=== PATIENT | female | born 1990 | race Caucasian/White ===

== ENCOUNTER 2024-06-14 09:26 | Emergency (ER) | payer OTHER, SELFPAY ==
--- NOTE | ~2024-06-14 | CT_ITS ---
EXAMINATION: CT ABDOMEN AND PELVIS WITH CONTRAST CLINICAL INFORMATION: Abdominal pain, nausea, and vomiting. COMPARISON: None available. TECHNIQUE: Multidetector volumetric images were obtained from the superior aspect of the liver through the pubic symphysis following administration 85 mL of Omnipaque 350 intravenous contrast. Sagittal and coronal reformatted images were obtained on the technologist's workstation. Oral contrast: No This CT examination was performed using dose optimization techniques as appropriate, variously including the following: *Automated exposure control *Adjustment of mA and/or kV according to patient size (this includes techniques or standardized protocols for targeted exams where dose is matched to indication/reason for exam; i.e. extremities or head) *Use of iterative reconstruction technique FINDINGS: LUNG BASES: The visualized lung bases are unremarkable. LIVER, GALLBLADDER, AND BILIARY TREE: The liver is normal in size, shape, and attenuation. No suspicious focal hepatic lesion or biliary ductal dilatation is present. There is a tiny subcentimeter segment 3 cyst with adjacent dystrophic calcification. The gallbladder is unremarkable with no evidence of radiopaque gallstones, gallbladder wall thickening, or obvious pericholecystic inflammatory changes. PANCREAS: Unremarkable. SPLEEN: Unremarkable. ADRENAL GLANDS: Unremarkable. KIDNEYS AND URETERS: The kidneys are normal in size, shape, and attenuation. No hydronephrosis, hydroureter, or calculi seen. No perinephric stranding. BLADDER: Unremarkable. GASTROINTESTINAL TRACT: The stomach and duodenum are normal. The small and large bowel are unremarkable. The appendix is unremarkable. The rectum is unremarkable. ABDOMINAL WALL: No significant hernia is appreciated. LYMPH NODES: None enlarged by size criteria. Increased number of small subcentimeter mesenteric lymph nodes, presumably reactive. VASCULAR: Unremarkable. PELVIC VISCERA: There is an inferior right paramedian fundal fibroid tumor measuring 4.0 x 4.8 x 5.2 cm (AP, TRV, CC). Uterus and ovaries are otherwise normal in appearance. Trace free pelvic fluid, likely physiologic. OSSEOUS STRUCTURES: No suspicious lytic or blastic bone lesions. Normal appearance. CT/CT abdomen pelvis w IV con IMPRESSION: 1. No acute findings in the abdomen or pelvis. 2. Increased number of subcentimeter small lymph nodes throughout the small bowel mesentery, nonspecific and likely reactive. Consider mesenteric adenitis. 3. Inferior right paramedian fundal uterine fibroid measuring 4.0 x 4.8 x 5.2 cm. Electronically signed by: Neymar Rodriguez MD 06/14/2024 04:08 PM EDT RP
[2024-06-14 09:32] VITALS: BP 125/83; PULSE 117; RESP 18; TEMP 36.8; O2SAT 97; BMI 36.4
--- NOTE | 2024-06-14 09:51 | ECG_ITS ---
Test Reason : TACHY Blood Pressure : */* mmHG Vent. Rate : 114 BPM Atrial Rate : 114 BPM P-R Int : 118 ms QRS Dur : 78 ms QT Int : 330 ms P-R-T Axes : 18 -2 -1 degrees QTcB Int : 454 ms Sinus tachycardia Nonspecific ST and T wave abnormality Abnormal ECG No previous ECGs available Referred By: Generic ED Physician Electronically Signed By: IVETH PALMA
[2024-06-14 10:02] LABS: MANUAL DIFF FLAG NO
[2024-06-14 10:04] LABS: Basophils Percent Auto 0.3 % (0-2); Eosinophils Absolute Auto 0.1 X10*3/uL (0.0-0.4); Eosinophils Percent Auto 1.8 % (0-4); Hematocrit 38.4 % (37.0-47.0); Hemoglobin 12.3 g/dl (12.0-16.0); Imm Gran Abs Auto 0.02 X10*3/uL (0.00-0.03); Imm Gran Pct Auto 0.3 % (0.0-0.4); Lymphocytes Absolute Auto 1.1 X10*3/uL (1.2-4.9); Lymphocytes Percent Auto 14.5 % (20-40); Mean Corpuscular Hemoglobin 25.9 pg (27.0-33.0); Monocytes Absolute Auto 0.6 X10*3/uL (0.1-1.2); Monocytes Percent Auto 7.5 % (2-11); Neutrophils Absolute Auto 5.8 x10*3/uL (2.0-8.3); Neutrophils Percent Auto 75.6 % (45-73); Platelet Count 257 X10*3/uL (160-400); Red Blood Count 4.74 X10*6/uL (4.20-5.50); Red Cell Distribution Width 15.6 % (11.0-16.0); White Blood Count 7.6 X10*3/uL (4.8-10.8)
[2024-06-14 10:24] LABS: Alanine Aminotransferase 21 U/L (0-31); Albumin Level 3.9 g/dL (3.5-5.0); Alkaline Phosphatase 63 U/L (39-117); Anion Gap 9 (12-20); Aspartate Amino Transferase 21 U/L (5-31); Bilirubin Total 0.3 mg/dL (0.0-1.0); Blood Urea Nitrogen 9 mg/dL (9-16); Calcium 8.8 mg/dL (8.4-10.2); Carbon Dioxide 23 mmol/L (22-29); Chloride 109 mmol/L (96-108); Estimated Glomerular Filt Rate > 60; Glucose Random 108 mg/dL (60-115); Lipase 23 U/L (8-78); Potassium 3.9 mmol/L (3.3-5.1); Sodium 137 mmol/L (135-145); Total Protein 6.6 g/dL (6.5-8.0)
[2024-06-14 10:33] LABS: IDNOW Serial# 58CA691E; Influenza A Negative (Negative); Influenza B2 Negative (Negative)
[2024-06-14 11:26] LABS: Appearance Urine Clear; Color Urine Yellow; Glucose Urine UA Negative (Negative); Leukocyte Esterase Urine Small (1+) (Negative); Nitrite Urine Negative (Negative); PH 6.5 (5.0-9.0); UMIC TRIGGER UACC YES; Urine Blood Negative (Negative); Urine Ketones Negative (Negative); Urine Protein Negative (Neg-Trace)
[2024-06-14 11:34] LABS: Bacteria Urine 1+ (None Seen); Hyaline Casts Urine 0-2 /LPF (0-2); RBC Urine 0-2 /HPF (0-2); UACC Culture Trigger YES; WBC Urine 0-5 /HPF (0-5)
[2024-06-14 11:39] VITALS: BP 134/80; PULSE 84; RESP 15; TEMP 36.6; O2SAT 97
--- NOTE | 2024-06-14 11:47 | ED_ITS ---
HPI - Nausea/Vomiting/Diarrhea General Chief complaint: Nausea/Vomiting/Diarrhea Stated complaint: GI Issues Time Seen by Provider: 06/14/24 10:57 History of Present Illness HPI Narrative: Patient is 33 years old presents today with having nausea vomiting diarrhea generalized malaise abdominal pain worse on the right side. No history of abdominal surgery in the past. Patient does not think she is . Menstrual cycle has been normal. No coughing or congestion or upper respiratory symptoms. No diaphoresis. Related Data Previous Rx's ?Medication ?Instructions ?Recorded ondansetron 4 mg disintegrating 4 mg PO TID PRN nausea and 06/14/24 tablet vomiting 5 days #10 tabs Allergies Allergy/AdvReac Type Severity Reaction Status Date / Time No Known Allergies Allergy Verified 06/14/24 09:35 Review of Systems 2 Review of Systems: Positive abdominal pain positive nausea positive diarrhea Yes all other systems are reviewed and are negative [facility] Past Medical History Attestation statement: The following information was validated with the patient. Social History Social History Advance Directives: No Advance Directives Information Provided: No Physical Exam 2 Vital Signs: Vital Signs: Last Vital Signs Temp 98.3 F 06/14/24 15:39 Pulse 91 06/14/24 15:39 Resp 17 06/14/24 15:39 BP 120/72 06/14/24 15:39 Pulse Ox 99 06/14/24 15:39 O2 Del Method Room Air 06/14/24 15:39 BMI result Body Mass Index 36.4 Appearance: Alert. Oriented X3. No acute distress. Eyes: Pupils equal, round and reactive to light. ENT: Pharynx normal. Neck: Normal inspection. Neck supple. No lymph nodes noted. No crepitus CVS: Normal heart rate and rhythm. Pulses normal. Normal S1 and S2 Respiratory: No respiratory distress. Breath sounds normal. No Wheezing. No rales Abdomen: Soft and nontender. No rigidity. No distention. good BS x4 Skin: Skin warm and dry. Normal skin color. Normal skin turgor. Extremities: No lower extremity edema. Neurovascular intact to all extremities. No Lacerations. No Rash Neuro: Oriented X 3. No motor deficit. No sensory deficit. Moving all extermities. No slurred speech Medications Administered Discontinued Medications Generic Name Dose Route Start Last Admin Trade Name Freq PRN Reason Stop Dose Admin Sodium Chloride 1,000 mls @ 999 mls/hr 06/14/24 11:45 06/14/24 12:59 Ns IV 06/14/24 12:45 Infused .Q1H1M LAKSHMI Infusion Sodium Chloride 1,000 mls @ 999 mls/hr 06/14/24 11:45 06/14/24 15:05 Ns IV 06/14/24 12:45 Infused .Q1H1M LAKSHMI Infusion Iohexol 100 ml 06/14/24 15:44 06/14/24 15:44 Iohexol 350 Mg/Ml 100 Ml Infus..Btl IV 06/14/24 15:45 85 ml ONCE ONE Administration Ketorolac Tromethamine 15 mg 06/14/24 11:50 06/14/24 12:09 Ketorolac Tromethamine 15 Mg/Ml Vial IVPUSH 06/14/24 11:51 15 mg ONCE ONE Administration Ondansetron HCl 4 mg 06/14/24 11:50 06/14/24 12:09 Ondansetron Hcl 4 Mg/2 Ml Vial IVPUSH 06/14/24 11:51 4 mg ONCE ONE Administration Medical Decision Making Medical Decision Making [facility] Narrative: Patient is 33 years old presents today with having nausea vomiting diarrhea. A colleague also has a same illness. Patient had some right upper quadrant pain as well. There is no shortness of breath there is no diaphoresis. Her electrolytes are normal. test was negative no related issue. CT scan showed no evidence of appendicitis. Patient's LFTs are normal exam negative for biliary disease. Will discharge patient home close follow-up on an outpatient basis. Differential Diagnosis Differential Diagnoses: The differential diagnosis associated with the presentation includes Gastroenteritis, appendicitis, biliary disease, kidney stone Admission/Observation Consideration of admission/observation: Escalation of care including admission/observation considered Lab Data [facility] Lab Attestation statement: I reviewed the patient's lab results. 06/14/24 09:49 06/14/24 09:49 Labs: Lab Results 06/14/24 06/14/24 Range/Units 09:49 11:15 WBC 7.6 (4.8-10.8) X10*3/uL RBC 4.74 (4.20-5.50) X10*6/uL Hgb 12.3 (12.0-16.0) g/dl Hct 38.4 (37.0-47.0) % MCV 81.0 (80.0-98.0) fL MCH 25.9 L (27.0-33.0) pg MCHC 32.0 (31.0-35.0) g/dl RDW 15.6 (11.0-16.0) % Plt Count 257 (160-400) X10*3/uL MPV 10.0 (9.4-12.3) fL Immature Gran % (Auto) 0.3 (0.0-0.4) % Neut % (Auto) 75.6 H (45-73) % Lymph % (Auto) 14.5 L (20-40) % [place] % (Auto) 7.5 (2-11) % Eos % (Auto) 1.8 (0-4) % Baso % (Auto) 0.3 (0-2) % Lymph # (Auto) 1.1 L (1.2-4.9) X10*3/uL [place] # (Auto) 0.6 (0.1-1.2) X10*3/uL Eos # (Auto) 0.1 (0.0-0.4) X10*3/uL Baso # (Auto) 0.0 (0.0-0.2) X10*3/uL Abs Immat Gran (auto) 0.02 (0.00-0.03) X10*3/uL Absolute Neuts (auto) 5.8 (2.0-8.3) x10*3/uL Absolute Nucleated RBC 0.000 (0.0-0.012) X10*3/uL Nucleated RBC % (auto) 0.0 (0.0-0.2) /100WBC Sodium 137 (135-145) mmol/L Potassium 3.9 (3.3-5.1) mmol/L Chloride 109 H (96-108) mmol/L Carbon Dioxide 23 (22-29) mmol/L Anion Gap 9 L (12-20) BUN 9 (9-16) mg/dL Creatinine 0.74 (0.5-1.4) mg/dL Estim Creat Clear Calc 135.0 Estimated GFR > 60 Random Glucose 108 (60-115) mg/dL Calcium 8.8 (8.4-10.2) mg/dL Total Bilirubin 0.3 (0.0-1.0) mg/dL AST 21 (5-31) U/L ALT 21 (0-31) U/L Alkaline Phosphatase 63 (39-117) U/L Total Protein 6.6 (6.5-8.0) g/dL Albumin 3.9 (3.5-5.0) g/dL Lipase 23 (8-78) U/L Beta HCG, Quant < 2 mIU/mL Urine Color Yellow Urine Appearance Clear Urine pH 6.5 (5.0-9.0) Ur Specific [place] 1.010 (1.005-1.025) Urine Protein Negative (Neg-Trace) mg/dL Urine Glucose (UA) Negative (Negative) mg/dL Urine Ketones Negative (Negative) mg/dL Urine Blood Negative (Negative) Urine Nitrite Negative (Negative) Ur Leukocyte Esterase Small (1+) H (Negative) Urine RBC 0-2 (0-2) /HPF Urine WBC 0-5 (0-5) /HPF Ur Squamous Epith Cells 3-5 (0-2) /HPF Urine Bacteria 1+ (None Seen) Hyaline Casts 0-2 (0-2) /LPF Urine Test NEGATIVE (NEGATIVE) Influenza Type A (REYNALDO) Negative (Negative) Influenza Type B (REYNALDO) Negative (Negative) Influenza A & B Note See Note Independent Interpretation I performed an independent interpretation of an: CT Scan ( CT abdomen negative for obstruction abscess perforation) Radiology Impression Discussion of test interpretation with radiology: I have reviewed the radiologist's reading. Discharge Plan Discharge Clinical Impression: Gastroenteritis Patient Disposition: Home, Self-Care Instructions: Gastroenteritis (DC) Prescriptions: New ondansetron 4 mg tablet,disintegrating 4 mg PO TID PRN (Reason: nausea and vomiting) 5 Days Qty: 10 0RF Referrals: Physician,Unknown J [Primary Care Provider] - 06/18/24 Print Language: Maltese
[2024-06-14] MEDS: 0.9 % Sodium Chloride 1,000 ML 999 ML IV ×2 (11:58→14:04)
[2024-06-14] MEDS: ondansetron HCL 4 MG/2 ML VIAL IVPUSH (12:09)
[2024-06-14] MEDS: Ketorolac Tromethamine 15 MG/ML VIAL IVPUSH (12:09)
--- OUTSIDE RECORDS SUMMARY | 2024-06-14 12:33 | XMS_ITS | Encounter Summary ---
Author Organization [facility] Address [address] [place] [address] Care Team Providers Care Game Moderator Name Role Phone Nanette Flores MD Unavailable Encounter Details Date Type Department Care Team (Late st Contact Info) Description 07/24/2009 Hospital Visit [facility] OUTPATIENT Derick Fong DO [address], [place] [id number] Social History Tobacco Use Types Packs/Day Years Used Date Smoking Tobacco: Never Assessed Comments Unknown Sex and Gender Information Value Date Recorded Sex Assigned at Not on file Legal Sex Female 6:54 AM EST Gender Identity Not on file Sexual Orientation Not on file documented as of this encounter H&P Notes * Derick Fong DO - 08/14/2009 9:51 AM EDT KEVIN MARIA INES [id number] ADM: 07/24/2009 LOC: [facility] DATE OF : 89 REFERRING PHYSICIAN: Nanette Flores M.D. CHIEF COMPLAINT: Large tonsils. HISTORY OF CHIEF COMPLAINT: An 18-year-old female who presents because of chronically enlarged tonsils and pain in the area of the tonsils in the upper neck. She states she will frequently have a sore throat and points to the area of the jugulodigastric nodes. This has been an ongoing problem for years. PAST MEDICAL HISTORY: Aside from the above the patient has enjoyed good health. MEDICATIONS: Xanax. PHYSICAL EXAMINATION: Height 5 foot 7, weight 160. Ears: Within normal limits. Nose: No obstruction. Mouth and throat: Tonsils are full grade III/IV with injection of the anterior pillars. Palpation of the neck: No significant adenopathy. Thyroid, major salivary glands are within normal limits. Heart: Rate and rhythm regular without murmur. Lungs: Clear to auscultation. IMPRESSION: Tonsil hypertrophy/chronic tonsillitis. RECOMMENDATIONS: Tonsillectomy. Complications of the procedure especially bleeding have been expressed to the patient and her mother. DICTATED BY: Derick Franco DO Attending [facility] Medical Technician Services [phone] /SLD [id number] cc: Nanette Fong DO PRELIMINARY REPORT UNTIL SIGNED BY ATTENDING PHYSICIAN Working Document - Sign in [facility] DERICK FONG DO ELECTRONICALLY SIGNED 08/14/2009 9:48 documented in this encounter OR Notes * Op Note - Derick Fong DO - 08/14/2009 9:48 AM EDT MARIA INES GARCIA [id number] OR DATE: 07/24/2009 LOC: [facility] REFERRING PHYSICIAN: Nanette Flores MD SURGEON: Derick Fong D.O. ANESTHESIA: General. NAME OF PROCEDURE: Tonsillectomy. PREOPERATIVE DIAGNOSIS: Chronic tonsillitis. POSTOPERATIVE DIAGNOSIS: Chronic tonsillitis. INDICATIONS: See history and physical. INTRAOPERATIVE FINDINGS: Tonsils were grade 2-3/4, deep crypts, exudative debris within the crypts, minimal adenoid tissue, nasal choanae symmetrical and patent. DESCRIPTION OF PROCEDURE: The patient was placed in supine position and administered general anesthesia through an oral endotracheal tube. Kenneth mouth gag was inserted. Mouth and nasopharynx were explored with the above findings. Superior pole of left tonsil was grasped with an Allis forceps, placed on traction, anterior pillar dissected free. Superior pole mobilized using scissors and the tonsil from the fossa using electrocautery. Same procedure was performed on the opposite side. Hemostasis observed. The patient was sent to the PACU in stable condition. DICTATED BY: Derick Franco DO Attending [facility] Medical Technician Services [phone] /[facility] [id number] cc: Derick Yip MD PRELIMINARY REPORT UNTIL SIGNED BY ATTENDING PHYSICIAN Working Document - Sign in [facility] DERICK FONG DO ELECTRONICALLY SIGNED 08/14/2009 9:46 documented in this encounter Plan of Treatment Not on file documented as of this encounter Visit Diagnoses Not on filedocumented in this encounter Care Teams Game Moderator Relationship Specialty Start Date End Date Nanette Flores MD [address] [place] [address] PCP - Hospital (change to care team) 07/08/09 06/16/12 documented as of this encounter
--- OUTSIDE RECORDS SUMMARY | 2024-06-14 12:33 | XMS_ITS | Encounter Summary ---
Author Organization [facility] Address [address] [place] [address] Care Team Providers Care Screen Writer Name Role Phone Nanette Flores MD Unavailable Encounter Details Date Type Department Care Team (Late st Contact Info) Description 07/08/2009 Hospital Visit [facility] OUTPATIENT Provider, Unknown Social History Tobacco Use Types Packs/Day Years Used Date Smoking Tobacco: Never Assessed Comments Unknown Sex and Gender Information Value Date Recorded Sex Assigned at Not on file Legal Sex Female 6:54 AM EST Gender Identity Not on file Sexual Orientation Not on file documented as of this encounter Plan of Treatment Not on file documented as of this encounter Visit Diagnoses Not on filedocumented in this encounter Care Teams Screen Writer Relationship Specialty Start Date End Date Nanette Flores MD [address] [place] [id number] PCP - Hospital (change to care team) 07/08/09 06/16/12 documented as of this encounter
--- OUTSIDE RECORDS SUMMARY | 2024-06-14 12:33 | XMS_ITS | Patient Health Record ---
Author Organization [facility] Address [place] [address] Care Team Providers Care Culinary Specialist Name Role Phone HIV PREVENTION SPECIALIST Kate Davila Primary Care Provider Unavailabl e Reason For Referral No Information Immunizations Vaccine Route Administration Date Status Comme nts Hep B, adolescent or pediatric (State Supply) Unknown 01/30/1991 Administered (959457 ) Hep B, adolescent or pediatric (State Supply) Unknown 03/27/1991 Administered (654890 ) Hep B, adolescent or pediatric (State Supply) Unknown 12/04/1991 Administered (479562 ) HPV (human papillomavirus), quadrivalent, 3 dose schedule Unknown 10/22/2007 Administered (529230) Influenza (FluLaval) 0.5 mL (Private supply) IM Intramuscular 12/15/2017 Administered Menactra (STATE Supply) Unknown 10/22/2007 Administered (331500) MMR (State Supply) Unknown 12/04/1991 Administered (431 286) MMR (State Supply) Unknown 11/10/1995 Administered (431 286) Tdap Unknown 01/20/2003 Administered (311087) Problems Problem Type SNOMED Code ICD Code Onset Dates Problem Status W/U Status Risk Notes Problem Supraventricular premature beats (14071978) Supraventricular premature beats (427.61) Active confirmed Problem Palpitations (05890937) Palpitations (785.1) Active confirmed Problem Anxiety state (136824018) Anxiety state, unspecified (300.00) Active confirmed (353828 ) Plan Of Treatment No Information Insurance Providers Payer Name Payer Address Payer Phone Subscriber Number Group Number Insured Name Patient Relationship to Insured Coverage Start Date Coverage End Date [facility] [address] [place] [phone] [id number] Maria Ines Garcia Self - patient is the insured 3 Medical (General) History Medical History History ICD Code G0 H/O Anxiety 2008 H/O chicken pox 1995 Palpitations due to freq PAC/PVC--Dr Rita chau (Nl Echo 04/2012) Surgical History Surgery Date(Month/Year) Tonsillectomy 07/2009
--- OUTSIDE RECORDS SUMMARY | 2024-06-14 12:33 | XMS_ITS | Continuity of Care Document ---
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 Immunization Series Date Given Administered By Site Reaction Lot Number CVX Code Drug Forestry Hunter Status Comments Source influenza, injectable, quadrivalent- pf 2021 [id number] GlaxoSmithKli ne complet ed influenza , injectabl e, quadrival ent-pf 01/15/22 Given Ambulat ory Pharmac y tetanus, diphtheria, acellular pertu is 2020 [id number] sanofi pasteur complet ed tetanus, diphtheri a, acellular pertussis 01/16/21 Given Ambulat ory Pharmac y influenza, injectable, quadrivalent 2020 [id number] GlaxoSmithKli ne complet ed influenza , injectabl e, quadrival ent 11/26/20 Given Ambulat ory Pharmac y COVID Vaccine Moderna 2020 [id number] complet ed COVID Vaccine Moderna 07/11/20 Given Ambulat ory Pharmac y COVID Vaccine Moderna 2020 [id number] complet ed COVID Vaccine Moderna 06/12/20 Given Ambulat ory Pharmac y influenza, injectable, quadrivalent- pf 2019 [id number] 150 Seqirus complet ed influenza , injectabl e, quadrival ent-pf 01/21/20 Given Ambulat ory Pharmac y anthrax vaccine 2019 [id number] Emergent Biosolutions complet ed anthrax vaccine 11/22/19 Given Ambulat ory Pharmac y anthrax vaccine 2019 [id number] Emergent Biosolutions complet ed anthrax vaccine 05/08/19 Given Ambulat ory Pharmac y typhoid Vi capsular polysaccharid e vac 2019 [id number] sanofi pasteur complet ed typhoid Vi capsular polysacch aride vac 05/08/19 Given Ambulat ory Pharmac y influenza, seasonal, injectable 2017 [id number] GlaxoSmithKli ne complet ed influenza , seasonal, injectabl e 12/15/17 Given Ambulat ory Pharmac y measles/mumps /rubella virus vaccine 2017 [id number] [employer] complet ed measles/m umps/rube lla virus vaccine 08/03/17 Given Ambulat ory Pharmac y influenza, seasonal, injectable-pf 2016 [id number] Seqirus complet ed influenza , seasonal, injectabl e-pf 01/15/17 Given Ambulat ory Pharmac y tuberculin purified protein derivative 2016 [id number] sanofi pasteur complet ed tuberculi n purified protein derivativ e 08/13/16 Given Ambulat ory Pharmac y influenza, seasonal, injectable 2015 [id number] 141 Seqirus complet ed influenza , seasonal, injectabl e 01/06/16 Given Ambulat ory Pharmac y anthrax vaccine 2015 [id number] Emergent Biosolutions complet ed anthrax vaccine 12/30/15 Given Ambulat ory Pharmac y anthrax vaccine 2015 [id number] 24 Emergent Biosolutions complet ed anthrax vaccine 07/24/15 Given Ambulat ory Pharmac y anthrax vaccine 2015 [id number] Emergent Biosolutions complet ed anthrax vaccine 06/18/15 Given Ambulat ory Pharmac y typhoid Vi capsular polysaccharid e vac 2015 [id number] sanofi pasteur complet ed typhoid Vi capsular polysacch aride vac 06/18/15 Given Ambulat ory Pharmac y influenza, seasonal, injectable-pf 2014 [id number] 140 CSL Behring complet ed influenza , seasonal, injectabl e-pf 12/07/14 Given Ambulat ory Pharmac y influenza, seasonal, injectable-pf 2013 [id number] Novartis Pharmaceutica ls complet ed influenza , seasonal, injectabl e-pf 01/25/14 Given Ambulat ory Pharmac y Influenza, injectable, MDCK-pf 2012 [id number] 153 Novartis Pharmaceutica ls complet ed Influenza , injectabl e, MDCK-pf 01/06/13 Given Ambulat ory Pharmac y influenza, seasonal, injectable-pf 2011 [id number] 140 CSL Behring complet ed influenza , seasonal, injectabl e-pf 12/03/11 Given Ambulat ory Pharmac y hepatitis B adult vaccine 2011 [id number] Merck & Company Inc complet ed hepatitis B adult vaccine 12/03/11 Given Ambulat ory Pharmac y hepatitis B adult vaccine 2011 [id number] 43 GlaxoSmithKli ne complet ed hepatitis B adult vaccine 06/13/11 Given Ambulat ory Pharmac y hepatitis B adult vaccine 2011 [id number] 43 GlaxoSmithKli ne complet ed hepatitis B adult vaccine 04/27/11 Given Ambulat ory Pharmac y poliovirus vaccine, inactivated 2011 [id number] sanofi pasteur complet ed polioviru s vaccine, inactivat ed 04/27/11 Given Ambulat ory Pharmac y adenovirus vaccine, live 2011 [id number] 143 Teva Pharmaceutica ls complet ed adenoviru s vaccine, live 04/27/11 Given Ambulat ory Pharmac y tuberculin purified protein derivative 2011 [id number] 96 sanofi pasteur complet ed tuberculi n purified protein derivativ e 04/24/11 Given Ambulat ory Pharmac y influenza, seasonal, injectable-pf 2011 [id number] 140 sanofi pasteur complet ed influenza , seasonal, injectabl e-pf 04/22/11 Given Ambulat ory Pharmac y tetanus, diphtheria, acellular pertu is 2011 [id number] 115 GlaxoSmithKli ne complet ed tetanus, diphtheri a, acellular pertussis 04/22/11 Given Ambulat ory Pharmac y meningococcal A,C,Y,W-135 (MCV4P) 2011 [id number] 114 sanofi pasteur complet ed meningoco ccal A,C,Y,W-1 35 (MCV4P) 04/22/11 Given Ambulat ory Pharmac y Results Combined list of recent chemistry, hematology and other laboratory results from Department of Defense and Veterans Affairs, ranging from 15 months to all on record, depending upon the facility. Order Name Results Value Reference Range Date Interpretation Specimen Comments Source Infectiou s Disease HIV-1/O/2 Non-Reac tive 1 ( 4 12:28 PM) 01/02 N Interpretiv e Data: INTERPRETAT ION: This method is a screening procedure for the detection of HIV p24 Antigen and Antibodies to HIV-1, including Group O, and/or HIV-2. NON-REACTIV E: HIV-1 antigen and HIV-1 / HIV-2 antibodies were not detected. No laboratory evidence of HIV infection. A negative test result does not exclude the possibility of exposure to or infection with HIV. HIV antibodies and/or p24 antigen may be undetectabl e in some stages of the infection and in some clinical conditions. If acute HIV infection is suspected, consider submitting another specimen to a reference laboratory for HIV-1 RNA. SCREEN REACTIVE - CONFIRMATIO N TO FOLLOW: Possible presence of HIV-1antibo dies, HIV-2 antibodies and/or HIV-1 p24 antigen. Specimen will reflex to the confirmatio n testing that fulfills the Center for Disease Control and Prevention' s HIV diagnostic algorithm. Refer to [facility] Lab Guide for additional information : [email or web address]. [facility]/ [email or web address]/EPIL [email or web address] [email or web address] x Testing performed by [employer] julienne veloz. [address] [facility] EPILAB Miscellan eous Sendouts Repository Sample Received ( 4 12:28 PM) 01/02 N [facility] EPIL[facility] Infectiou s Disease HIV-1/O/2 Non-Reac tive 2 (03/21/23 1:49 PM) 03/21 N Interpretiv e Data: INTERPRETAT ION: This method is a screening procedure for the detection of HIV p24 Antigen and Antibodies to HIV-1, including Group O, and/or HIV-2. NON-REACTIV E: HIV-1 antigen and HIV-1 / HIV-2 antibodies were not detected. No laboratory evidence of HIV infection. A negative test result does not exclude the possibility of exposure to or infection with HIV. HIV antibodies and/or p24 antigen may be undetectabl e in some stages of the infection and in some clinical conditions. If acute HIV infection is suspected, consider submitting another specimen to a reference laboratory for HIV-1 RNA. SCREEN REACTIVE - CONFIRMATIO N TO FOLLOW: Possible presence of HIV-1antibo dies, HIV-2 antibodies and/or HIV-1 p24 antigen. Specimen will reflex to the confirmatio n testing that fulfills the Center for Disease Control and Prevention' s HIV diagnostic algorithm. Refer to [facility] Lab Guide for additional information : [email or web address]. [facility]/ kj/kx5/EPIL ab/Pages/villa [email or web address] x Testing performed by Mainor hirsch [facility] [facility] EPILAB Miscellan eous Sendouts Repository Sample Received (03/21/23 1:49 PM) 03/21 N [facility] EPILAB Encounters Combined list of: 1) Encounters from Department of Veterans Affairs facilities going backup to the last 18 months, not all [place] inpatient encounters are included; 2) Encounters from the Department of [facility] facilities going backup to 280 months. Location Location Details Encounter Type Encounter Number Reason For Visit Attending Provider ADM Date DC Date Status Disposition Source [id number] AMDS Outpatient [id number] NEENA MEZAAlonso 01/03 Discharge Disposition: Home or Self Care 8344R-4 39 AMDS [id number] AMDS Between Visit [id number] 06/12 Discharge Disposition: Home or Self Care 8344R-4 39 AMDS Procedures Combined list of: 1) Procedures from Department of Veterans Affairs facilities going back up to thelast 18 months, not all [place] non-surgical procedures are included; 2) All procedures from the Department of Defense facilities. Procedure Procedure Type Code Date Perfomer Comments Sourc e No data available for this section Ambulatory P harmacy Assessment and Plan Combined list of future care activities from Department of Defense and Veterans Affairs facilities (e.g., assessment and plan notes, appointments, orders, and referrals). Additional future care activities may be listed in the Plan of Care section. 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 Address concerns identified on deployer questions 1 and 2. Self health rating: Not answered Deployer's response: Provider's comments: Physical therapy for the Rank[place] and Knee Change in health post-deployment: Not answered Deployer's response: Provider's comments: Physical therapy for the [place] and Knee 2. Address wounds, injuries, assaults, etc., occurring during deployment as reported on deployer question 3. Deployer did not answer question 3. 3. Deployment experiences as reported in deployer question 4. Consider in overall assessment; ask follow-up questions as indicated. Danger of being killed: Not answered Provider's comments: Encountered bodies or saw people killed or wounded: Not answered Provider's comments: In direct combat and discharged weapon: Not answered Provider's comments: 4. Address concerns identified on deployer questions 5 through 7. Health care visits since return: N/A Deployer's response: Provider's comments: Hospitalized since return: Not answered Deployer's response: Provider's comments: NO Physical limitations/problems: Not answered Deployer's response: Provider's comments: Stable 5. Post-deployment general symptoms/health concerns. List of symptoms reported as Bothered a Lot on Deployer Questions 8a. through 8ee.: None List of symptoms reported as Bothered a Little on Deployer Questions 8a. through 8ee.: None Physical symptom (PHQ-15) severity score for Deployer Questions 8a. through 8ee.: ? a. Deployer does not have evidence of high generalized post-deployment physical symptoms. 6. Deployer did not answer question 9 concerning a major life stressor. Additional info: Referral is not indicated because the deployer is already under care. 7. Address concerns identified on deployer questions 10 and 11. History of mental health care: N/A Deployer's response: Provider's comments: Medications: N/A Deployer's response: Provider's comments: 8. Deployer did not answer question 12 concerning alcohol use. Number of drinks per week: 3 Maximum number of drinks per occasion: 3 Referral is not indicated because the deployer is already under care. 9. Deployer did not answer all questions 13a through 13e. Referral is not indicated because the deployer is already under care. 10. Deployer did not answer all questions 14a through 14b. Referral is not indicated because the deployer is already under care. 11. Deployer did not indicate a worry or concern about a possible environmental/work exposure. 13.a. Deployer has not wished they were or wished they could go to sleep and not wake up. 13.b. Deployer has not actually had thoughts of killing themself. 13.f.1. Deployer has not ever done anything, started to do anything, or prepared to do anything to end their life. 13.g. Further risk assessment: 13.h. Deployer does not pose a current risk for harm to self. 14. Deployer states that they have not had thoughts or concerns over the past month that they might hurt or lose control with someone. 19. Address requests as reported on deployer questions 18 through 21: No reported requests. 20. Supplemental services recommended/information provided: No Supplemental Services Required ----- 1. Not answered : Overall how would you rate your health during the PAST MONTH? 2. Not answered : Compared to before your most recent deployment, how would you rate your health in general now? 3. Not answered : Were you wounded, injured, assaulted or otherwise hurt during your deployment? 4. During your deployment: 4. a. Not answered : Did you ever feel like you were in great danger of being killed? 4. b. Not answered : Did you encounter bodies or see people killed or wounded during this deployment? 4. c. Not answered : Did you engage in direct combat where you discharged a weapon? 5. Not answered : Since you returned from deployment, how many times have you gone to a health care provider for a medical, dental, or mental health problem/concern? 6. Not answered : Since you returned from deployment, have you been hospitalized? 7. Not answered : During the PAST MONTH, how difficult have physical health problems (illness or injury) made it for you to do your work or other regular daily activities? 8. During the PAST MONTH, how much have you been bothered by any of the following problems? (See health care provider item #5 above) 9. a. Not answered : Over the PAST MONTH, what major life stressors have you experienced that are a cause of significant concern or make it difficult for you to do your work, take care of things at home, or get along with other people? 10. Not answered : In the PAST YEAR did you receive care for any mental health condition or concern such as, but not limited to post traumatic stress disorder (PTSD), depression, anxiety disorder, alcohol abuse or substance abuse? 11. Not answered : What prescription or over-the counter medications (including herbals/supplements) for sleep, pain, combat stress, or a mental health problem are you CURRENTLY taking? 12. a. Not answered : How often do you have a drink containing alcohol? 12. b. Not answered : How many drinks containing alcohol do you have on a typical day when you are drinking? 12. c. Not answered : How often do you have six or more drinks on one occasion? 13. Have you ever had any experience that was so frightening, horrible, or upsetting that in the PAST MONTH, you: 13. a. Not answered : Have had nightmares about it or thought about it when you did not want to? 13. b. Not answered : Tried hard not to think about it or went out of your way to avoid situations that remind you of it? 13. c. Not answered : Were constantly on guard, watchful or easily startled? 13. d. Not answered : [place] numb or detached from others, activities, or your surroundings 13. e. Not answered : [place] guilt or unable to stop blaming yourself or others for the event(s) or any problems the event(s) may have caused? 14. Over the LAST 2 WEEKS, how often have you been bothered by the following problems? 14. a. Not answered : Little interest or pleasure in doing things 14. b. Not answered : Feeling down, depressed, or hopeless 15. Not answered : Are you worried about your health because you believe you were exposed to something in the environment while deployed? 17. Not answered : Were you bitten or scratched by an animal during your deployment? 18. Not answered : Would you like to schedule an appointment with a health care provider to discuss any health concern(s)? 19. Not answered : Are you interested in receiving information or assistance for a stress, emotional or alcohol concern? 20. Not answered : Are you interested in receiving assistance for a family or relationship concern? 21. Not answered : Would you like to schedule a visit with a power wood sawyer, mental health care provider, or a community support counselor? 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 MENTAL HEALTH ASSESSMENT (MHA) PROVIDER INFORMATION 1. Last Name: ANNITA 2. First Name: TORO 3. Middle Name: 4. Service Branch: [employer] [place] 5. 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 EMAIL: [email or web address] 8. Facility: [address] 9. Unit: [address] 10. Address: [address] [place] [address] 11. State: [facility]. Zip Code: [address] 13. Date: ----- 1. Deployer marked that they did not have a concern or a difficulty with a major life stressor. 2. Address concerns identified on deployer questions 2 and 3. History of mental health care: N/A Deployer's response: Provider's comments: no hx Medications: N/A Deployer's response: Provider's comments: no meds 3. Deployer's AUDIT-C screening score was 1. (nothing required) 4. Deployer did not rodo yes on three or more of questions 5a through 5e. 5. Deployer did not rodo More than half the days or nearly every day on question 6a or 6b. 6.a. Deployer has not wished they were or wished they could go to sleep and not wake up. 6.b. Deployer has not actually had thoughts of killing themself. 6.f.1. Deployer has not ever done anything, started to do anything, or prepared to do anything to end their life. 6.g. Further risk assessment: no impairment or concerns 6.h. Deployer does not pose a current risk for harm to self. 7. Deployer states that they have not had thoughts or concerns over the past month that they might hurt or lose control with someone. 13. Supplemental services recommended/information provided: No Supplemental Services Required ----- 1. a. [ None ] Over the PAST MONTH, which major life stressors, if any, have you experienced that are a cause of significant concern or make it difficult for you to do your work, take care of things at home, or get along with other people? 2. [ No ] In the PAST YEAR did you receive care for any mental health condition or concern such as, but not limited to post traumatic stress disorder (PTSD), depression, anxiety disorder, alcohol abuse or substance abuse? 3. [ None ] What prescription or over-the counter medications (including herbals/supplements) for sleep, pain, combat stress, or a mental health problem are you CURRENTLY taking? 4. a. [ Monthly ] How often do you have a drink containing alcohol? 4. b. [ 1 or 2 ] How many drinks containing alcohol do you have on a typical day when you are drinking? 4. c. [ Never ] How often do you have six or more drinks on one occasion? 5. Have you ever had any experience that was so frightening, horrible, or upsetting that in the PAST MONTH, you: 5. a. [ No ] Have had nightmares about it or thought about it when you did not want to? 5. b. [ No ] Tried hard not to think about it or went out of your way to avoid situations that remind you of it? 5. c. [ No ] Were constantly on guard, watchful or easily startled? 5. d. [ No ] [place] numb or detached from others, activities, or your surroundings? 5. e. [ No ] [place] guilt or unable to stop blaming yourself or others for the event(s) or any problems the event(s) may have caused? 6. Over the LAST 2 WEEKS, how often have you been bothered by the following problems? 6. a. [ Few or several days ] Little interest or pleasure in doing things 6. b. [ Not at all ] Feeling down, depressed, or hopeless 7. [ No ] Would you like to schedule an appointment with a health care provider to discuss any health concern(s)? 8. [ No ] Are you interested in receiving information or assistance for a stress, emotional or alcohol concern? 9. [ No ] Are you interested in receiving assistance for a family or relationship concern? 10. [ No ] Would you like to schedule a visit with a power wood sawyer or a community support counselor? Extracted from:Title: [facility] 2023 Author: ANA VAZQUEZ Date: 01/03/24 ANNUAL PERIODIC HEALTH ASSESSMENT I. SIMULATION ENGINEER INFORMATION AND DEMOGRAPHICS (SMI) 1. Last Name: KEVIN 2. First Name: TOSHA 3. Middle Name: KAREL 4. Assessment Date: 5. : 6. Age: 33 7. Sex: F 8. [employer] ID Number: [id number] 9. Service Branch: [employer] 10. 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 Unit Name: [address] 14. Duty Station/Location: [place] 15. C: [id number] 16. Is this your first Periodic Health Assessment (PHA)?: N 17. Are you enrolled in a secure messaging system with your health care provider?: 18. Current contact information: Preferred Method: Email 2 DSN: [id number] Day Time Phone: [phone] Night Time Phone: [phone] Email 1: [email or web address] Email 2: [email or web address] Address: [address] [place] [address] City: [place] State: [place] Zip Code: [address] 19. Point of contact who can always reach you: Name: Josephine Garcia Phone 1: [phone] Phone 2: EMAIL: [email or web address] Address: [address] [place] [address] City: [place] State: [place] Zip Code: [address] II. DEPLOYMENT INFORMATION (DEP) 1. [ 2 ] Total number of deployments in the PAST 5 YEARS 2. [ [place] ] Primary country of last deployment 3. [ ] Date departed theater 4. [ N ] Are you going to deploy within the NEXT 120 DAYS? III. 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 [ No ] Does your specialty require an operational duty physical exam? 4. [ No ] Are you currently enrolled in a medical surveillance/occupational health program?: No IV. MEDICAL CONDITIONS (SUSHMA): 1. Since your last PHA, have you experienced any of the following health conditions, and if so, what is your status? [ Periods of dizziness, fainting, or loss of consciousness, Persistent or recurring noises in head or ears ] Conditions with no medical care [ ] Conditions with medical care, but no longer under treatment [ ] Conditions with medical care, and NOW under treatment 2. Since your last PHA, have you experienced any of the following health conditions, and if so, what is your status? [ ] Conditions with no medical care [ ] Conditions with medical care, but no longer under treatment [ ] Conditions with medical care, and NOW under treatment 3. For any condition marked YES in question 1 or 2, are you currently on any profile or limited duty for that condition? [ ] Conditions 4. [ Yes ] Have you been based or stationed at a location where an open burn pit was used? 5. [ Not Sure ] Have you been exposed to toxic airborne chemicals or other airborne contaminants? 6. [ No ] Are you enrolled in the Airborne Hazards and Open Burn Pit Registry? 7. [ Yes ] Federal law requires eligible members to enroll in the Airborne Hazards and Open Burn Pit Registry or opt-out. If eligble, choose one: 8. Have you had any surgery since your last PHA?: No 10.a. [ No ] Since your last PHA, has a health care provider recommended surgery(s) that you have not had? 11.a. [ No ] Do you currently require hearing aids, special medical supplies, CPAP, adaptive equipment, assistive technology devices, and/or other special accommodations? 12.a. [ No ] Do you have a waiver or profile for any part of your Service's physical fitness test? 13.a. [ No ] Do you have any problems wearing a gas mask, ballistic helmet, body armor, and/or chemical/biological protective garments? 14.a. [ No ] Have you ever been told by a health care provider that you SHOULD NOT receive an immunization for medical reasons? 15.a. [ No ] Do you have a permanent profile or an Assignment Limitation Code C? 16.a. [ No ] Are you on a temporary profile or limited duty? 17. [ 2 ] During the PAST 2 years, how many times have you been placed on a temporary profile or on limited duty? V. INDIVIDUAL MEDICAL READINESS (IMR) 1. [ No ] Do you have any allergies? 3. [ Not required ] Do you have red medical warning dog tags? 4. [ No ] Do you wear corrective lenses? . BEHAVIORAL HEALTH (MHA) 1. a. [ None ] Over the PAST MONTH, what major life stressors have you experienced that are a cause of significant concern or make it difficult for you to do your work, take care of things at home, or get along with other people (for example, serious conflicts with others, relationship problems, or a legal, disciplinary or financial problem)? 2. a. [ No ] In the PAST YEAR did you receive care for any mental health condition or concern such as, but not limited to post traumatic stress disorder (PTSD), depression, anxiety disorder, alcohol abuse or substance abuse? 3. [ None ] What prescription or over-the counter medications (including herbals/supplements) for sleep, pain, combat stress, or a mental health problem are you CURRENTLY taking? 4. a. [ No ] In the past 12 months, have you gambled? 5. a. [ 2-4 times a month ] How often do you have a drink containing alcohol? 5. b. [ 1 or 2 ] How many drinks containing alcohol do you have on a typical day when you are drinking? 5. c. [ Never ] How often do you have six or more drinks on one occasion? 6. Have you ever had any experience that was so frightening, horrible, or upsetting that in the PAST MONTH, you: 6. a. [ No ] Have had nightmares about it or thought about it when you did not want to? 6. b. [ No ] Tried hard not to think about it or went out of your way to avoid situations that remind you of it? 6. c. [ No ] Were constantly on guard, watchful or easily startled? 6. d. [ No ] [place] numb or detached from others, activities, or your surroundings? 6. e. [ Not answered ] [place] guilt or unable to stop blaming yourself or others for the event(s) or any problems the event(s) may have caused? 7. Over the LAST 2 WEEKS, how often have you been bothered by the following problems? 7. a. [ Few or several days ] Little interest or pleasure in doing things 7. b. [ Not at all ] Feeling down, depressed, or hopeless 8. [ No ] Would you like to schedule an appointment with a health care provider to discuss any health concern(s)? 9. [ No ] Are you interested in receiving information or assistance for a stress, emotional or alcohol concern? 10. [ No ] Are you interested in receiving assistance for a family or relationship concern? 11. [ No ] Would you like to schedule a visit with a power wood sawyer, mental health care provider, or a community support counselor? VII. FAMILY HISTORY AND LIFESTYLE (LIF) 1. [ Good ] Overall, how would you rate your health during the PAST MONTH? 2. [ Cancer, Heart-related conditions, Diabet ] Member indicates that family members have the following problems 3. The following family members has/had a history of cancer: Colon: Grandmother PANCRIATIC: Grandfather LIVER: Grandfather Unknown Type of Cancer: Grandmother 4. The following family members has/had a history of heart-related conditions: High Blood Pressure: Father Heart Attack: Father Cardiac Arrhythmia: Father 5. The following family members has/had a history of diabetes: Unknown: Grandfather 6. [ Yes ] I participate in moderate intensity physical activites at least 2.5 hours, or a combination of moderate and vigorous aerobic activites, for at least 75 minutes per week. 7. In a typical week, I do physical activities specifically designed to STRENGTHEN my muscles: [ 4 ] Day(s) per week 8. [ None ] What prescriptions or [id number]-okrsiqc medications are you CURRENTLY taking for health problems on a ROUTINE BASIS? 9. Which of the following products have you taken since your last PHA: Multi-Vitamins: Once a day 11. Think about the PAST 30 DAYS. How often did you eat/drink the following foods/beverages? [ 1 serving per day ] Fruits [ 1 serving per day ] Vegetables [ 1 or 2 servings per week ] Starchy Vegetables [ 3 to 6 servings per week ] Whole Grains [ 1 or 2 servings per week ] Dairy and Calcium Containing Foods [ Rarely or Never ] Fish [ 1 serving per day ] Lean Protein [ 1 or 2 servings per week ] Sugar-Sweetened Beverages 12. [ Yes ] Have you had a cholesterol check by a health professional healthcare representative within the PAST 5 YEARS? 13.a. In the PAST 30 DAYS, which of the following products have you used on at least one day? None 15. Which of the following best describes your past tobacco use? I used tobacco in the past, but quit in 2022 16. [ No ] Are you regularly exposed to secondhand smoke? 17. [ 5 to less than 7 hours ] During the LAST 2 WEEKS, how many hours of sleep did you get on most days? 18. [ No ] During the LAST 2 WEEKS, have you felt impaired or unable to adequately perform due to sleepiness or poor quality sleep? 19. [ No ] Have you had any unexplained weight loss or gain since your last PHA? 20. Member is not at risk for sexually transmitted infections. 22. Since your last PHA, what, if anything, have you and your partner used to keep from getting ? [ I have a same sex partner(s). ] I am not actively taking steps to prevent as 23. [ No ] In the last year, have you or your partner had a scare, where you were not trying to get but were worried enough to use a home test? VIII. WOMEN'S HEALTH (WOM) 1. [ No ] Do you wish to receive contraceptive counseling? 2. [ I am not now, and was not or delivered in the past 12 months ] Which of the following best describes you? 3. [ No ] Have you had a total hysterectomy? 4. [ No ] Are you postmenopausal and no longer experiencing menstrual cycles? 5. [ No ] Are you currently taking folic acid or a vitamin containing folic acid 6. [ No ] Do you have heavy and/or irregular menstrual cycles/pain or premenstrual syndrome (PMS)? 7. [ No ] Do you have recurrent urinary tract infections? 8. [ Yes ] Have you had a Pap test within the PAST 3 YEARS? 9. [ No ] Have you ever had an abnormal Pap Test? 13. [ No ] Do you have a history of gestational diabetes? IX. RESERVE COMPONENT (RES) 1. [ No ] Do you have an injury, illness, Or disease which was incurred or aggravated while in a duty status since your last PHA? 4. [ Yes - ] Are you currently coverered under a health insurance policy? 5.a. [No, I have never applied for Worker's Compensation ] Do you have any current physical or mental health limitations related to a Worker's Compensation claim? 6. [ No ] Have you applied for or have you received a VA disability rating? X. OTHER MEDICAL (OTH) 1. [ 2 ] Rate the amount of pain you have had, on average, over the PAST 24 HOURS 2. [ No ] Are you receiving treatment for pain? 3. [ No ] Since your last PHA, have you received care or treatment for any medical and/or mental health condition(s) from a civilian or non- facility? 5. Member acknowledged responsibility for reporting health issues. 7. [ No ] Woud you like to schedule an appointment with a health care provider to discuss any health concerns? XI. SEPARATION AND DETENTION 1. 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 PART B. RECORD REVIEW AND RECOMMENDATIONS I. RECORD REVIEWER INFORMATION 1. Last Name: GEORGE 2. First Name: ANA 3. Middle Name: Nanette 4. Service Branch: [employer] 5. 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 EMAIL: [email or web address] 8. Facility: [facility] 9. Unit: [facility] 10. Address: [facility] [address] 11. State: [facility]. Zip Code: [address] 13. 14. Date Record Review: II. MEDICAL SCREENING 1. [ ] Date of membership counselor's most recent PHA 2. [ 5 feet 7 inches Date: ] membership counselor's most recently documented height 3. [ 236 pounds Date: ] membership counselor's most recently documented weight 4. [ 116/80 Date: ] membership counselor's most recently documented blood pressure reading 5. [ No ] Does the membership counselor have a history of abnormal blood pressure since their last PHA? 6. [ Yes ] Does the membership counselor have a laboratory test of sickle cell trait documented in their permanent medical record? 7. [ No Cholesterol Test Documented ] What is the date of the membership counselor's most recently documented cholesterol test? 9. [ No Active Medications Documented ] List of membership counselor's active medications listed in their permanent medical record 10. [ No ] Is there a discrepancy between the active medication record review and the membership counselor's self-reported list of medications? 11. [ Mbr was seen for injury of conjunctiva and corneal abrasion, ankle sprain ] List documented significant care the membership counselor has received since their last PHA from a provider OUTSIDE the Health System 12. [ Yes: Mbr was seen for injury of conjunctiva and corneal abrasion, ankle sprain ] Is there a discrepancy between the membership counselor's list of OUTSIDE care (from OT5), and the OUTSIDE care found in the record? 13. [ No Inside Care Documented ] List documented significant care the membership counselor has received since their last PHA from a provider INSIDE the Health System 15. [ Not Answered ] Confirm that vaccine exemptions are listed in the medical record for each vaccine listed IV. FAMILY HISTORY AND LIFESTYLE 1. [ Yes ] Does the [id number] reflect the membership counselor's reported family history? V. WOMEN'S HEALTH 3. [ No Documented Pap Test ] Date and result of the most recent Pap test 4. [ ] Notes from review of health records associated with history of abnormal Pap, colposcopy, excisional procedure, or cryotherapy . DEPLOYMENT-RELATED HEALTH ASSESSMENTS 1. [ Yes ] Based on your check of records, does the membership counselor have any due or overdue deployment health assessments which need to be completed with this PHA? VII. INDIVIDUAL MEDICAL READINESS 1. [ No ] Does the membership counselor have an Assignment Limitation Code C? 3. [ Classification: 1 ] Most recently documented dental exam 4. [ No: Influenza, [place] ] Is the membership counselor current on all required immunizations in the immunization tracking system? 6. Does the membership counselor have the following laboratory tests documented in their permanent medical record? [ Yes ] HIV test within the PAST 24 months [ Yes ] G6PD results on file [ Yes ] Blood type and Rh on file [ Yes ] DNA test on file IX. ADDITIONAL RECORD REVIEWER COMMENTS 1. This record review indicates the potential need for provider notification or referral: Provider Notified 2. Additional comments about this record review that need to be forwarded to the Health Carpet Yarn Winder Operator completing PART C: Mbr reported Health Condition: Periods of dizziness, fainting, or loss of consciousness and Persistent or recurring noises in your head or ears did not get tx Mbr reported Little interest or pleasure in doing things for few or several days Supplements: multi vit. No medications. Tobacco use: quit 2022. no alcohol concerns. Pain scale 2/10 in past 72 hrs No other findings in JLV Date Record Review Completed: PART C. HEALTH CARE PROVIDER I. MENTAL HEALTH ASSESSMENT (MHA) PROVIDER INFORMATION 1. Last Name: ANNITA 2. First Name: TORO 3. Middle Name: 4. Service Branch: [employer] 5. 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 EMAIL: [email or web address] 8. Facility: [address] [place], [place] [address] 9. Unit: [address] [place], [place] [address] 10. Address: [address] [place] [address] 11. State: [facility]. Zip Code: [address] 13. 14. Date HCP Review initiated: 1. Member marked that they did not have a concern or a difficulty with a major life stressor. 2. Address concerns identified on member questions 2 and 3. History of mental health care: N/A Member's response: Provider's comments: no hx Medications: N/A Member's response: Provider's comments: no meds 3. Member's AUDIT-C screening score was 2. (nothing required) 4. Member did not rodo yes on two or more of questions 6a through 6e. 5. Member did not rodo More than half the days or nearly every day on question 7a or 7b. 6. Suicide risk evaluation. 6. a. Ask: Over the past month, have you wished you were or wished you could go to sleep and not wake up?: No 6. b. Ask: Have you actually had any thoughts of killing yourself?: No 6. f. 1. Ask: In you lifetime, have you done anything, started to do anything, or prepared to do anything to end your life?: No 6. g. Further risk assessment comments: 7. Member states that they have not had thoughts or concerns over the past month that they might hurt or lose control with someone. 9. Summary of Provider's identified concerns needing referrals: None 11. Comments: 13. Supplemental services recommended/information provided: No supplemental services required Date MHA Certified: III. PERIODIC HEALTH ASSESSMENT (PHA) PROVIDER INFORMATION 1. Last Name: ANNITA 2. First Name: TORO 3. Middle Name: 4. Service Branch: [employer] 5. 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 EMAIL: [email or web address] 8. Facility: [facility] 9. Unit: [facility] 10. Address: [address] [place] [place] [address] [place] 11. State: [place] 12. Zip Code: [address] 13. 14. Date HCP Review initiated: IV. PERIODIC HEALTH ASSESSMENT PROVIDER RECOMMENDATIONS and REFERRALS 1. Provider concerns with this assessment: No issues or concerns identified V. SUMMARY AND COMMENTS 1. Additional information summarizing findings during the membership counselor assessment: 2. Provider Comments: mbr reports aggravation of past injuries while on deployment. Right knee and right ankle. Seen by provider and decrease weight bearing if able. Currently improved but not yet resolved. Has ortho in [place] from prev injuries. Mbr will follow-up after returning home. . INDIVIDUAL MEDICAL READINESS DISPOSITION DETERMINATION SUSHMA: Ready DEN: Ready IMM: Ready LAB: Ready ME: Ready IMR Status: Fully Medically Ready VII. SERVICE MEDICAL DEPLOYABILITY EVALUATION INDICATED Based on your review of all documentation, is the membership counselor medically deployable without limitations? Reference [facility] 6490.07 Yes (membership counselor DOES NOT currently have a medical condition that limits deployability) Date PHA Completed: END OF [id number] REPORT Extracted from:Title: DHA2 Author: TIESHA JETT Date: 11/30/23 POST DEPLOYMENT HEALTH ASSESSMENT (PDHA) - [id number] FEB 2023 Last Name: KEVIN First Name: TOSHA DODID: [id number] Date of : Sex: Female Service Branch: [employer] Component: [employer] Pay Grade: E7 ----- Date arrived theater: Date departing theater: ----- Summary of provider's identified concerns needing referral: None identified ----- Provider Comments: Finger pain. Feel better when pops. Does not recall and injury. Already taking Mobic. ----- [place] Date: ----- 1. Address concerns identified on deployer questions 1 and 2. Self health rating: N/A Deployer's response: N/A Provider's comments: alright Change in health post-deployment: N/A Deployer's response: N/A Provider's comments: none 2. Address wounds, injuries, assaults, etc., occurring during deployment as reported on deployer question 4. Deployer did not indicate concern. 3. Deployment experiences as reported in deployer question 5. Consider in overall assessment; as follow-up questions as indicated. Danger of being killed: N/A Provider's comments: none Encountered bodies or saw people killed or wounded: N/A Provider's comments: none In direct combat and discharged weapon: N/A Provider's comments: none 4. Address concerns identified on deployer questions 6 through 9. Health care visits during deployment: N/A Deployer's response: N/A Provider's comments: 3 Care for combat stress/mental health: N/A Deployer's response: N/A Provider's comments: none Hospitalized since return: N/A Deployer's response: N/A Provider's comments: none Physical limitations/problems: Deployer indicated concern or yes Deployer's response: Provider's comments: hurts to go up and down stairs, I live on second story and work on upstairs story 5. a. Deployer had an injury based on responses to question 10.a. b. Deployer did NOT have a possible concussion based on responses to questions 10.a. through 10.c. 6. Post-deployment general symptoms/health concerns. List of symptoms reported as Bothered a Lot on Deployer Questions 11a. through 11ee.: None List of symptoms reported as Bothered a Little on Deployer Questions 11a. through 11ee.: Back pain, Pain in the arms, legs, or joints (knees, hips, etc.), Menstrual cramps or other problems with your periods (Women only), Headaches, Feeling your heart pound or race, Shortness of breath, Constipation, loose bowels, or diarrhea, Feeling tired or having low energy, Trouble Sleeping, Noises in your head or ears (such as ringing, buzzing, crickets, humming, tone, etc.), Becoming easily annoyed or irritable, Skin rash and/or lesion Physical symptom (PHQ-15) severity score for Deployer Questions 11a. through 11o.: Low a. Deployer does not have evidence of high generalized post-deployment physical symptoms. 7. Deployer marked that they did not have a concern or a difficulty with a major life stressor. 8. Address concerns as described on deployer questions 13 and 14. History of mental health care: N/A Deployer's response: Provider's comments: none Medications: N/A Deployer's response: Provider's comments: Mobic, Mucinex, Flonase, MVI 9. Deployer's AUDIT-C screening score was 3. (nothing required) 10. Deployer did not rodo yes on two or more of questions 16a through 16e. 11. Deployer did not rodo More than half the days or nearly every day on question 17a or 17b. 12. Deployer indicated a worry or concern about a possible environmental/work exposure. a. Deployer's exposure concerns: Industrial pollution, Smoke from burrning trash or feces Referral is not indicated because there is no significant impairment. 13. Deployer marked NO to the question about possible exposure to depleted uranium. 14. Deployment location did not require malaria prophylaxis. 15. Deployer indicated they were NOT bitten or scratched during this deployment. 16.a. Deployer has not wished they were or wished they could go to sleep and not wake up. 16.b. Deployer has not actually had thoughts of killing themself. 16.f.1. Deployer has not ever done anything, started to do anything, or prepared to do anything to end their life. 16.g. Further risk assessment: none 16.h. Deployer does not pose a current risk for harm to self. 17. Deployer states that they have not had thoughts or concerns over the past month that they might hurt or lose control with someone. 23. Supplemental services recommended/information provided: [facility] ----- 1. Good : Overall how would you rate your health during the PAST MONTH? 2. About the same as before I deployed : Compared to before this deployment, how would you rate your health in general now? 3. Not at all : How often did you smoke tobacco (For example cigarettes, cigars, pipe, Or hookah) during your deployment? 4. No : Were you wounded, injured, assaulted or otherwise hurt during your deployment? 5. During your deployment: 5.a. No : Did you ever feel like you were in great danger of being killed? 5.b. No : Did you encounter bodies or see people killed or wounded during this deployment? 5.c. No : Did you engage in direct combat where you discharged a weapon? 6. 1 visit : How many times during your deployment did you visit a health care provider for a medical or dental health problem/concern? 7. No : During this deployment did you receive care for combat stress or a mental health problem/concern? 8. No : During this deployment did you have to spend one or more nights in a hosptial as as patient? 9. Somewhat difficult : During the PAST MONTH, how difficult have physical health problems (illness or injury) made it for you to do your work or other regular daily activities? 10.a. During this deployment, did any of the following events happen to you? (Rodo all that apply) No : (1) Blast or explosion (e.g. IED, RPG, EFP, land mine, grenade, etc.)? No : (2) Vehicular accident/crash (any vehicle including aircraft)? (3) Fragment wound or bullet wound? No : a. Head or neck? No : b. Rest of body? Yes : (4) Other injury (e.g., sports injury, accidental fall, etc.)? r knee, r ankle : If yes to any of the above, please explain 10.b. As a result of any of the events in 10.a., did you receive a jolt or blow to your head that IMMEDIATELY resulted in: No : (1) Losing consciousness? (knocked out) No : (2) Losing memory of events before or after the injury? No : (3) Seeing stars, becoming disoriented, functioning differently, or nearly blacking out? 10.c. 0 : How many total times during this deployment did you receive a blow or jolt to your head? 11. During the PAST MONTH, how much have you been bothered by any of the following problems? (See health care provider item #6 above) 12.a. None : Over the PAST MONTH, what major life stressors, if any, have you experienced that are a cause of significant concern or make it difficult for you to do your work, take care of things at home, or get along with other people? 13. No : In the PAST YEAR, did you receive care for any mental health condition or concern such as, but not limited to post traumatic stress disorder (PTSD), depression, anxiety disorder, alcohol abuse or substance abuse? 14. None : What prescription or over-the counter medications (including herbals/supplements) for sleep, pain, combat stress, or a mental health problem are you CURRENTLY taking? 15.a. 2-4 times a month : How often do you have a drink containing alcohol? 15.b. 3 or 4 : How many drinks containing alcohol do you have on a typical day when you are drinking? 15.c. Never : How often do you have six or more drinks on one occasion? 16. Have you ever had any experience that was so frightening, horrible, or upsetting that in the PAST MONTH, you: 16.a. No : Have had nightmares about it or thought about it when you did not want to? 16.b. No : Tried hard not to think about it or went out of your way to avoid situations that remind you of it? 16.c. No : Were constantly on guard, watchful or easily startled? 16.d. No : [place] numb or detached from others, activities, or your surroundings 16.e. No : [place] guilt or unable to stop blaming yourself or others for the event(s) or any problems the event(s) may have caused? 17. Over the LAST 2 WEEKS, how often have you been bothered by the following problems? 17.a. Few or several days : Little interest or pleasure in doing things 17.b. Not at all : Feeling down, depressed, or hopeless 18. Yes : Are you worried about your health because you believe you were exposed to something in the environment while deployed? --plastic water bottles with extended sun exposure 19.a. Not Sure : During this deployment were you based or stationed at a location where an open burn pit was used? 19.b. Not Sure : During this deployment were you exposed to toxic airborne chemicals or other air-borne contaminants? 19.c. No : For Service members, are you enrolled in the Airborne Hazards and Open Burn Pit Registry? 19.d. Wish to Enroll : For Service members, federal law requires eligible members to enroll in the Airborne Hazards and Open Burn Pit Registry or opt-out. If eligible, choose one: 20. No : Do you think you were exposed to any chemical, biological, or radiological warfare agents during this deployment? 21. No : Were you in a vehicle hit by a depleted uranium (DU) round; inside a destroyed vehicle that contained DU; or closely inspect such a vehicle? 22. No : Were you told to take medicines to prevent malaria? 23. No : Were you bitten or scratched by an animal during your deployment? 24. Yes : Would you like to schedule an appointment with a health care provider to discuss any health concern(s)? 25. No : Are you interested in receiving information or assistance for a stress, emotional or alcohol concern? 26. No : Are you interested in receiving assistance for a family or relationship concern? 27. No : Would you like to schedule a visit with a power wood sawyer, mental health care provider, or a community support counselor? Extracted from:Title: DHA1 Author: IVONE SOLIS Date: 03/21/23 PRE-DEPLOYMENT HEALTH ASSESSMENT ([id number] DEC 2014) Last Name: KEVIN First Name: TOSHA Social Security Number: [id number] Date of : Sex: Female Service Branch: [employer] Component: [employer] Pay Grade: E7 ----- Estimated date of upcoming deployment: Country: [facility] Number of previous deployments: 2 ----- Medical assessment/disposition: Deployable Medical assessment/disposition comments: ----- Summary of provider's identified concerns needing referral: None identified ----- Provider's Name: ARIADNA FERMIN Date: ----- 1. Address concerns identified on deployer questions 1 through 8. Self health rating: N/A Deployer's response: N/A Provider's comments: MEB or PEB: Deployer's response: N/A Provider's comments: Medical, dental or mental health concern: N/A Deployer's response: N/A Provider's comments: : N/A Deployer's response: N/A Provider's comments: Head Injury: N/A Deployer's response: N/A Provider's comments: Medications: N/A Deployer's response: N/A Provider's comments: History of mental health care: N/A Deployer's response: N/A Provider's comments: 2. Member marked that they were not bothered by noises in head or ears or trouble hearing. 3. Deployer's AUDIT-C screening score was 1. (nothing required) 4. Deployer did not rodo yes on two or more of questions 11a through 11d. 5. Deployer did not rodo More than half the days or nearly every day on question 12a or 12b. 6. Deployer marked that they did not have a concern or a difficulty with a major life stressor. 7. Deployer has not been bothered by thoughts that they would be better off or of hurting themself in some way. 8. Deployer states that they have not had thoughts or concerns over the past month that they might hurt or lose control with someone. 9. Medical history review completed. a. Significant findings related to ability to deploy: b. There is no evidence of deployment limiting conditions or medications. 16. Supplemental services recommended/information provided: ----- 1. Overall how would you rate your health during the PAST MONTH? : Very Good 2. Are you CURRENTLY on a profile, limited duty, waiting on a MOS/Medical Retention Board (MMRB) decision, or being referred to a medical evaluation board (MEB) or physical evaluation board (PEB)? : No 3. How often do you smoke tobacco (for example cigarettes, cigars, pipe or hookah)? : Not at all 4. What problems, questions or concerns do you have about your medical, dental, or mental health? : No 5. FEMALES ONLY - Are you or is there a chance you could be ? : No 6. In the PAST YEAR did you receive care for a head injury? : No 7. What prescription or over-the counter medications (including herbals/supplements) for sleep, pain, combat stress, or mental health conditions or concerns are you CURRENTLY taking? : None 8. During the PAST MONTH, how much have you been bothered by any of the following problems? : No 9. During the PAST MONTH, how much have you been bothered by any of the following problems? 9. a. Noises in your head or ears (such as ringing, buzzing, crickets, humming, tone, etc.) Not bothered at all 9. b. Trouble hearing Not bothered at all 10. a. How often do you have a drink containing alcohol? Monthly 10. b. How many drinks containing alcohol do you have on a typical day when you are drinking? 1 or 2 10. c. How often do you have six or more drinks on one occasion? Never 11. Have you ever had any experience that was so frightening, horrible, or upsetting that in the PAST MONTH, you: 11. a. Have had nightmares about it or thought about it when you did not want to? No 11. b. Tried hard not to think about it or went out of your way to avoid situations that remind you of it? No 11. c. Were constantly on guard, watchful or easily startled? No 11. d. [place] numb or detached from others, activities, or your surroundings No 12. Over the LAST 2 WEEKS, how often have you been bothered by the following problems? 12. a. Little interest or pleasure in doing things Not at all 12. b. Feeling down, depressed, or hopeless Not at all 13. a. Over the PAST MONTH, what major life stressors have you experienced that are a cause of significant concern or make it difficult for you to do your work, take care of things at home, or get along with other people (for example, serious conflicts with others, relationship problems, or a legal, disciplinary or financial problem)? : None 06/14/2024 [id number] [facility] Functional Status Combined list of recent functional and cognitive assessments recorded at [employer] of [employer] and [employer] (VA).VA Functional [place] Measurement (FIM) Scale: 1 = Total Assistance (Subject = 0% +), 2 = Maximal Assistance (Subject = 25% +), 3 = Moderate Assistance (Subject = 50% +), 4 = Minimal Assistance (Subject = 75% +), 5 = Supervision, 6 = Modified [place] (Device), 7 = Complete [place] (Timely, Safely). Assessment Date/Time Source Assessment Type Assessment Skill Assessment Score Assessment Details No data available for this section
--- OUTSIDE RECORDS SUMMARY | 2024-06-14 12:33 | XMS_ITS | Clinical Summary ---
Author Organization [facility] Address [address] [place] [address] Care Team Providers Care Helper Marble Finisher Name Role Phone Unavailable Primary Care Provider Unavailabl e Social History Tobacco Use Types Packs/Day Years Used Date Smoking Tobacco: Never Assessed Comments Unknown Sex and Gender Information Value Date Recorded Sex Assigned at Not on file Legal Sex Female 6:54 AM EST Gender Identity Not on file Sexual Orientation Not on file Plan of Treatment Not on file
--- OUTSIDE RECORDS SUMMARY | 2024-06-14 12:33 | XMS_ITS | Patient Health Record ---
Author Organization [facility] Health Services Address [address] [place] [address] Care Team Providers Care Funeral Driver Name Role Phone Vincent Barry Primary Care Provider Reason For Referral No Information Medications Medication SIG (Take, Route, Fr equency, Duration) Notes Start Date End Date Status predniSONE 20 MG 2 tablet with food o r milk Orally Once a day for 10 days 04/30/2019 Active Immunizations Vaccine Route Administration Date Status Comme nts DTaP (Pedi) Unknown 1990 Administered DTaP (Pedi) Unknown 01/30/1991 Administered DTaP (Pedi) Unknown 03/27/1991 Administered DTaP (Pedi) Unknown 09/30/1992 Administered DTaP (Pedi) Unknown 11/10/1995 Administered Hepatitis A (pedi 0-19 years) Unknown 10/22/2007 Admini stered Hepatitis B (pedi 0-19 years) Unknown 01/30/1991 Admini stered Hepatitis B (pedi 0-19 years) Unknown 03/27/1991 Admini stered Hepatitis B (pedi 0-19 years) Unknown 12/04/1991 Admini stered HPV 9 (Gardasil 9) Unknown 10/22/2007 Administered Influenza (Fluarix 6 months- Adult) Single Dose-Purchased Unknown 12/15/2017 Administered IPV/IPOL Unknown 1990 Administered IPV/IPOL Unknown 01/30/1991 Administered IPV/IPOL Unknown 09/30/1992 Administered IPV/IPOL Unknown 11/10/1995 Administered Meningococcal A/C/Y/W (Peds) Unknown 10/22/2007 Adminis tered MMR Unknown 12/04/1991 Administered MMR Unknown 11/10/1995 Administered Tdap Unknown 01/20/2003 Administered Social History Tobacco Use: Social History Observation Description Date Details (start date - stop date) Never Smoker NA - NA Alcohol Screen Question Answer Notes Did you have a drink contain ing alcohol in the past year? Yes How often did you have a dri nk containing alcohol in the past year? 2 to 4 times a month (2 points) How many drinks did you have on a typical day when you were drinking in the past year? 1 or 2 drinks (0 point) How often did you have 6 or more drinks on one occasion in the past year? Never (0 point) Points 2 Interpretation Negative Tobacco Screen Question Answer Notes Are you a: nonsmoker Plan Of Treatment No Information Insurance Providers Payer Name Payer Address Payer Phone Subscriber Number Group Number Insured Name Patient Relationship to Insured Coverage Start Date Coverage End Date [employer] [address] [place] [address] [id number] Maria Ines Garcia Self - patient is the insured 8 Medical (General) History Medical History History ICD Code herniated disc,L5-S1 palpatations Surgical History Surgery Date(Month/Year) tonsilectomy
--- OUTSIDE RECORDS SUMMARY | 2024-06-14 12:33 | XMS_ITS | Clinical Summary ---
Author Organization [facility] 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 NSAID long-term use 11/13/2018 Ulcer of esophagus without bleeding 11/13/2018 SBO (small bowel obstruction) 08/07/2018 Family History Medical History Relation Name Comments Arthritis Father Heart Disease Father Hypertension Father Cancer Maternal Grandfather Diabetes Maternal Grandfather Elevated Lipids Maternal Grandfather Heart Disease Maternal Grandfather Cancer Maternal Grandmother Stroke Maternal Grandmother Alcohol Abuse Maternal Uncle Diabetes Maternal Uncle Hypertension Maternal Uncle Arthritis Paternal Aunt Cancer Paternal Aunt Diabetes Paternal Aunt Hypertension Paternal Aunt Arthritis Paternal Grandfather Lung Disease Paternal Grandfather Headache Paternal Grandmother Arthritis Paternal Uncle Heart Disease Paternal Uncle High Cholesterol Paternal Uncle Hypertension Paternal Uncle Relation Name Status Comments Father Maternal Grandfather Maternal Grandmother Maternal Uncle Paternal Aunt Paternal Grandfather Paternal Grandmother Paternal Uncle Social History Tobacco Use Types Packs/Day Years Used Date Smoking Tobacco: Former Cigarettes Q uit: 11/20/2013 Smokeless Tobacco: Current Chew Tobacco Cessation:Ready to Q uit: Not Asked; Counseling Given: Not Answered Comments:Quit smoking: ocassional smokeless tobacco Alcohol Use Standard Drinks/Week Comments Yes 0 (1 standard drink = 0.6 oz pur e alcohol) 0-12 a week Comments Unknown Sex and Gender Information Value Date Recorded Sex Assigned at Not on file Legal Sex Female 7:17 PM EST Gender Identity Not on file Sexual Orientation Not on file Last Filed Vital Signs Vital Sign Reading Time Taken Comments Blood Pressure 123/81 09/23/2020 1:35 PM EDT Pulse 91 09/23/2020 1:35 PM EDT Temperature - - Respiratory Rate - - Oxygen Saturation - - Inhaled Oxygen Concentration - - Weight 95.3 kg (210 lb) 12/16/2021 8:30 AM EDT Height 170.2 cm (5' 7 ) 12/16/2021 8:30 AM EDT Body Mass Index 32.89 12/16/2021 8:30 AM EDT Plan of Treatment Health Maintenance Due Date Last Done Comments Depression Screen 2002 Varicella vaccine (1 of 2 - 13+ 2-dose series) 09/05/2003 HIV screen 2005 Hepatitis C screen 2008 DTaP/Tdap/Td vaccine (1 - Tdap) 2009 Hepatitis B vaccine (1 of 3 - 19+ 3-dose series) 2009 Pap smear 09/05/2011 Cervical cancer screen 2020 HPV (without or with Pap) 2020 Flu vaccine (#1) 10/12/2023 COVID-19 Vaccine ( - 2023-2 5 season) 2023 HPV vaccine Aged Out No longer eligi ble based on patient's age to complete this topic Hepatitis A vaccine Aged Out No longe r eligible based on patient's age to complete this topic Hib vaccine Aged Out No longer eligi ble based on patient's age to complete this topic Meningococcal (ACWY) vaccine Aged Out No longer eligible based on patient's age to complete this topic Meningococcal B vaccine Aged Out No l onger eligible based on patient's age to complete this topic Pneumococcal 0-49 years Vaccine Aged Out No longer eligible based on patient's age to complete this topic Polio vaccine Aged Out No longer elig ible based on patient's age to complete this topic Care Teams Zmt Operator Relationship Specialty Start Date End Date Jose J Bailey DO [address] [facility] [address] [place] [address] PCP - General Family Medicine 12/15/21
--- OUTSIDE RECORDS SUMMARY | 2024-06-14 12:33 | XMS_ITS | Encounter Summary ---
Author Organization [facility] Address [address] [place] [address] Care Team Providers Care Steward/Stewardess Wine Name Role Phone Nanette Flores MD Unavailable Encounter Details Date Type Department Care Team (Late st Contact Info) Description 07/09/2009 Hospital Visit [facility] Derick Fong, DO [address] [place] [address] Social History Tobacco Use Types Packs/Day Years [...] on filedocumented in this encounter Care Teams Steward/Stewardess Wine Relationship Specialty Start Date End Date Nanette Flores MD [address] [place] [id number] PCP - Hospital (change to care team) 07/08/09 06/16/12 documented as of this encounter
[2024-06-14 15:31] LABS: HCG Quantitative < 2 mIU/mL
[2024-06-14 15:39] VITALS: BP 120/72; PULSE 91; RESP 17; TEMP 36.8; O2SAT 99
[2024-06-14] MEDS: iohexoL 350 MG/ML 100 ML INFUS..BTL IV (15:44)
[2024-06-14 16:05] LABS: UPreg QC Valid YES; Urine Pregnancy NEGATIVE (NEGATIVE)
[2024-06-14 16:51] VITALS: BP 120/72; PULSE 91; RESP 17; TEMP 36.8; O2SAT 99
== END 2024-06-14 16:52 | disposition home or self-care (01) ==
PROVIDERS: Emergency Provider Emergency Medicine Emergency Medical Services
DX: K52.9 Noninfective gastroenteritis and colitis, unspecified (principal); R11.2 Nausea with vomiting, unspecified; R10.11 Right upper quadrant pain; R00.0 Tachycardia, unspecified; Z79.899 Other long term (current) drug therapy
CPT/HCPCS: 74177; 80053; 81001; 81025; 83690; 84702; 85025; 87086; 87502; 93005; 96361; 96374; 96375; 99285; J1885; J2405; Q9967

== ENCOUNTER → 2024-06-14 09:51 | Outpatient (BNV) | payer OTHER, SELFPAY | PROVIDERS: Emergency Provider Emergency Medicine Emergency Medical Services; Visit Provider Internal Medicine | DX: R00.0 Tachycardia, unspecified (principal) | CPT/HCPCS: 93010 ==

== ENCOUNTER → 2024-06-14 11:46 | Outpatient (BNV) | payer OTHER, SELFPAY | PROVIDERS: Emergency Provider Emergency Medicine Emergency Medical Services; Visit Provider Radiology Diagnostic Radiology | DX: D25.9 Leiomyoma of uterus, unspecified (principal); R59.0 Localized enlarged lymph nodes | CPT/HCPCS: 74177 ==